=== PATIENT | female | born 1975 | race Caucasian/White ===

== ENCOUNTER 2018-07-13 04:41 | Emergency (ER) | payer SELFPAY ==
[~2018-07-13] VITALS: Ht 152.4 cm; Wt 79.4 kg
[2018-07-13 04:45] VITALS: BP_SYST 146
[2018-07-13 04:59] VITALS: BP_SYST 146
== END 2018-07-13 04:54 ==
LOC: SED 04:41
DX: M79.644 Pain in right finger(s) (principal)
CPT/HCPCS: 99283